=== PATIENT | male | born 1965 | race Two or more races ===

== ENCOUNTER 2017-05-31 21:52 | Emergency (ER) | payer SELFPAY ==
[~2017-05-31] VITALS: Ht 177.8 cm; Wt 86.2 kg
--- NOTE | 2017-05-31 22:20 | NUR ---
PT AMBULATORY TO ER BED 7. PT BIBSELF C/O HIGH BP AND "FEELING DIZZY FROM NOT EATING ALL DAY". 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 VSS/RESP EVEN UNLABORED/NAD NOTED/SKIN WARM AND DRY/DENIES N-V-D/AOX4. AWAITING MD ANTUNEZ. EMT AT BEDSIDE FOR EKG.
--- NOTE | 2017-05-31 22:25 | NUR ---
18G TO L AC USING ASEPTIC TECH, BLOOD HANDED OVER TO LAB AT BEDSIDE. IV FLUSHES EASILY WITH NS.
[2017-05-31] MEDS ORDERED: ASPIRIN 325 MG TABLET PO ONE (22:30)
--- NOTE | 2017-05-31 22:30 | NUR ---
XRAY AT BEDSIDE PER MD ORDERS.
[2017-05-31 22:39] LABS: BASOPHILS % (AUTO) 0.5 % (0.0-2.0); EOSINOPHILS # (AUTO) 0.1 /CMM (0.0-0.7); EOSINOPHILS % (AUTO) 1.1 % (0.0-6.0); HEMATOCRIT 43 % (39-51); HEMOGLOBIN 14.5 g/dL (13.5-17.5); LYMPHOCYTES # (AUTO) 2.2 /CMM (0.8-4.8); LYMPHOCYTES % (AUTO) 29.6 % (20.0-44.0); MEAN CORPUSCULAR HEMOGLOBIN 28 PG (26.0-33.0); MEAN CORPUSCULAR HGB CONC 34 g/dl (31.0-36.0); MEAN CORPUSCULAR VOLUME 83 fL (80-96); MONOCYTES # (AUTO) 0.5 /CMM (0.1-1.30); MONOCYTES % (AUTO) 6.1 % (2.0-12.0); NEUTROPHILS # (AUTO) 4.8 /CMM (1.8-8.9); NEUTROPHILS % (AUTO) 62.7 % (43.0-81.0); PLATELET COUNT (AUTO) 232 /CMM (150-450); RDW COEFFICIENT OF VARIATION 14.6 (11.5-15.0); RED BLOOD CELL COUNT(AUTO) 5.11 MIL/uL (4.5-6.0); WHITE BLOOD COUNT (AUTO) 7.6 K/uL (4.3-11.0)
[2017-05-31 22:55] LABS: CALCIUM, SERUM 8.5 mg/dL (8.5-10.1); CARBON DIOXIDE 25 mmol/L (21-32); CHLORIDE 106 mmol/L (98-107); CREATININE 1.2 mg/dL (0.6-1.3); GLUCOSE 240 mg/dL (74-106); POTASSIUM 3.2 mmol/L (3.5-5.1); SODIUM SERUM 141 mmol/L (136-145); UREA NITROGEN, BLOOD 10 mg/dL (7-18)
[2017-05-31 22:58] LABS: INR 0.94 (0.87-1.13); PROTHROMBIN TIME 9.8 SECS (9.5-12.7)
[2017-05-31 23:08] LABS: TROPONIN I < 0.017 ng/mL (0.00-0.056)
[2017-05-31 23:09] LABS: ALANINE AMINOTRANSFERASE 44 U/L (12-78); ALBUMIN 3.2 g/dL (3.4-5.0); ALKALINE PHOSPHATASE 122 U/L (46-116); ASPARTATE AMINOTRANSFERASE 24 U/L (15-37); B-TYPE NATRIURETIC PEPTIDE 248 PG/ML (0-125); BILIRUBIN,DIRECT 0.1 mg/dL (0.0-0.2); BILIRUBIN,TOTAL 0.4 mg/dL (0.2-1.0); TOTAL PROTEIN, SERUM 7.1 g/dL (6.4-8.2)
--- NOTE | 2017-05-31 23:50 | NUR ---
Patient discharged to home in stable condition. Written and verbal after care instructions given. Patient verbalizes understanding of instruction. ambulatory with a steady gait noted. pt aaox4 no acute distress noted resp even and unlabored.
[2017-06-01 01:48] VITALS: BP 149/84
== END 2017-06-01 01:49 | disposition home or self-care (01) ==
LOC: ER 21:57
DX: I10 Essential (primary) hypertension (principal); R42 Dizziness and giddiness; I25.2 Old myocardial infarction
CPT/HCPCS: 36415; 71010-TC; 80048-TC; 80076-TC; 82962-TC; 83880; 84484-TC; 85025-TC; 85730-TC; A4606; Z7610